=== PATIENT | female | born 2000 | race Hispanic/Latino ===

== ENCOUNTER 2025-03-27 18:36 | Emergency (ER) | payer SELFPAY ==
[~2025-03-27] VITALS: Ht 167.6 cm; Wt 131.5 kg
[2025-03-27] MEDS ORDERED: HYDROCODON-ACE1 EA12 PEG (22:59)
[2025-03-27] MEDS ORDERED: NAPROSYN500 MG PO (22:59)
[2025-03-27] MEDS: HYDROCODONE/APAP 5MG-325MG TAB PO ONE (23:06)
[2025-03-27 23:38] VITALS: PULSE 70; RESP 16; TEMP 98.5; O2SAT 100
== END 2025-03-27 23:38 | disposition home or self-care (01) ==
LOC: ER 21:03
DX: S02.40CA Maxillary fracture, right side, initial encounter for closed fracture (principal); M79.671 Pain in right foot; Y04.0XXA Assault by unarmed brawl or fight, initial encounter; Y92.89 Other specified places as the place of occurrence of the external cause
CPT/HCPCS: 70450; 70486; 99284